=== PATIENT | male | born 1970 | race Caucasian/White ===

== ENCOUNTER → 2017-04-14 | Outpatient (CLI) | payer OTHER ==
[~2017-04-14] MED LIST: HYDR-5688 PO; MELO7.5T5 PO; MULT-506 PO
[2017-04-14 12:37] LABS: ALBUMIN 3.9 gm/dl (3.4-5.0); ALT/SGPT 26 U/L (12-78); BLOOD UREA NITROGEN 14 mg/dl (7-18); CARBON DIOXIDE 25 mmol/L (21-32); CHOLESTEROL 220 mg/dl (0-200); CREATININE 0.87 mg/dl (0.60-1.40); GLUCOSE 105 mg/dl (70-99); SODIUM 136 mmol/L (136-145)
[2017-04-14 12:42] LABS: ALKALINE PHOSPHATASE 53 U/L (45-117); AST/SGOT 25 U/L (15-37); LDL CHOLESTEROL CALCULATED 156 mg/dl; TOTAL PROTEIN 7.4 gm/dl (6.4-8.2)
== END | disposition home or self-care (01) ==
LOC: C.LABBFT 09:03
PROVIDERS: ATTEND Physician Assistant Medical
DX: Z12.5 Encounter for screening for malignant neoplasm of prostate (principal); E78.5 Hyperlipidemia, unspecified

== ENCOUNTER 2022-02-09 06:15 | Observation (INO) ==
--- NOTE | 2022-01-18 09:02 | PAT Medication Instructions ---
Medication Instructions Date of Service January 18, 2022 Home Medications Medication Instructions Recorded rosuvastatin 10 mg tablet 10 mg PO DAILY #90 tabs 01/21/21 meloxicam 15 mg tablet 15 mg PO DAILY PRN pain #30 tabs 10/06/21 albuterol sulfate 90 mcg/actuation 2 inh inhalation Q6H PRN shortness 12/14/21 aerosol inhaler (Ventolin HFA) of breath or wheezing #18 grams cetirizine 10 mg tablet (Zyrtec) 10 mg PO DAILY PRN allergies multivitamin 1 tab PO DAILY Carole Raulito 1 packet PO DAILY omega-3 fatty acids 1,000 mg PO DAILY rosuvastatin 10 mg tablet 10 mg PO DAILY meloxicam 15 mg tablet 15 mg PO DAILY PRN pain albuterol sulfate 90 mcg/actuation aerosol inhaler (Ventolin HFA) 2 inh inhalation Q6H PRN shortness of breath or wheezing ASK your surgeon for instructions meloxicam 15 mg tablet 15 mg PO DAILY PRN pain STOP taking 2 weeks before surgery (or as soon as possible if surgery is within 2 weeks) Carole Raulito 1 packet PO DAILY omega-3 fatty acids 1,000 mg PO DAILY DO NOT take the morning of surgery cetirizine 10 mg tablet (Zyrtec) 10 mg PO DAILY PRN allergies multivitamin 1 tab PO DAILY Take morning of surgery With a small sip of water, OTHERWISE NOTHING TO EAT OR DRINK AFTER MIDNIGHT: rosuvastatin 10 mg tablet 10 mg PO DAILY albuterol sulfate 90 mcg/actuation aerosol inhaler (Ventolin HFA) 2 inh inhalation Q6H PRN shortness of breath or wheezing (use if needed; please bring rescue inhaler with you to hospital day of surgery if possible) Take evening before surgery cetirizine 10 mg tablet (Zyrtec) 10 mg PO DAILY PRN allergies (if needed) albuterol sulfate 90 mcg/actuation aerosol inhaler (Ventolin HFA) 2 inh inhalation Q6H PRN shortness of breath or wheezing (if needed) Other Notes If you have any questions please call us at [phone] or [phone] or [phone] or [phone]
--- NOTE | 2022-01-19 09:12 | Anesthesiology Consultation ---
Date of Service January 19, 2022 Assessment & Plan (1) Encounter for pre-operative examination: - COVID screening: Per assessment on 01/19: No known COVID-19 positive contacts or current COVID-19 related symptoms. Travel screen- [place] 12/2021. Patient vaccinated. At surgeon discretion if preop Covid testing being done. - Outpatient joint assessment: Pt currently scheduled for inpatient pathway. If surgeon requests review for outpatient joint pathway, patient is an acceptable candidate for outpatient joint program from anesthesia standpoint pending surgeon's office assessment of pt motivation/strong home support/completion of same day joint program preop requirements. Chart Review Chart Review: Acceptable Risk for Surgery and Patient seen in Pre Admission Testing Teaching & Discussion Pre-Anesthesia Teaching/Discussion Notes: Instructed NPO after midnight before surgery,except medications with 15 cc of water. Medication instructions provided according to the PAT guidelines. History Surgery Operation Date: 02/09/22 08:50 Proposed Procedures p Left Total Knee Arthroplasty - Peter Meléndez MD Height/Weight Height: 6 ft Weight: 101.7 kg Allergies Allergy/AdvReac Type Severity Reaction Status Date / Time Penicillins Allergy Unknown hives Verified 01/15/22 08:47 Medications Home Medications Medication Instructions Recorded Confirmed Last Taken cetirizine 10 mg tablet (Zyrtec) 10 mg PO DAILY PRN allergies 04/17/19 01/15/22 Unknown multivitamin 1 tab PO DAILY 04/17/19 01/15/22 Unknown Carole Raulito 1 packet PO DAILY 12/28/19 01/15/22 Unknown omega-3 fatty acids 1,000 mg PO DAILY 12/28/19 01/15/22 Unknown rosuvastatin 10 mg tablet 10 mg PO DAILY #90 tabs 01/21/21 01/15/22 Unknown meloxicam 15 mg tablet 15 mg PO DAILY PRN pain #30 tabs 10/06/21 01/15/22 Unknown albuterol sulfate 90 mcg/actuation 2 inh inhalation Q6H PRN shortness 12/14/21 01/15/22 Unknown aerosol inhaler (Ventolin HFA) of breath or wheezing #18 grams Past Medical History Medical History Asthma due to seasonal allergies Degenerative arthritis of knee, bilateral Environmental allergies mold, dust Hypercholesteremia Hypertension no meds Exercise / Class Metabolic Activity II 4-5 Yardwork/Stairs/Walk up hill (one FS (no CP, no SOB)) Past Family History Family History Brother Myocardial infarction Mother Myocardial infarction Other No family history of adverse response to anesthesia Past Surgical History Surgical History History of carpal tunnel release Hx of arthroscopic knee surgery x2 Hx of inguinal hernia repair Past Anesthesia History No Hx of Anesthesia Complications and No Family Hx of Anesthesia Complications History of PONV No Hx of PONV and Hx of Motion Sickness (Boat) Social History Smoking Status: Never smoker tobacco type: smokeless tobacco Do You Dip or Chew Tobacco: Yes (Advised none DOS) Hx Alcohol Use: Yes alcohol intake frequency: a few times a week Hx Substance Use: No substance use type: does not use Review of Systems Patient denies chest pain, shortness of breath, dyspnea on exertion, fever, chills, cough, wheezing, palpitations. Physical Exam Vital Signs VITALS BP 121/77 P 74 TEMP 98.4 SP02 97%RA RESP 16 PHYSICAL Full cervical extension range of motion. Full TMJ range of motion. TMD 3 finger breaths Mallampati Score 3 Dentition: + chipped tooth (left upper side tooth) Lungs: clear throughout to auscultation Cardiac: regular rate and rhythm, no murmurs noted Spine: normal Carotid arteries: negative bruit Extremities: no edema Lab Results Anesthesia Preop Results Results Anesthesia Widget: WBC 4.67 K/ul (4.8-10.8) L 01/19/22 Hgb 14.9 g/dl (14.0-18.0) 01/19/22 Hct 43.5 % (40.1-51.0) 01/19/22 Plt 170 K/uL (130-400) 01/19/22 Na 139 mmol/L (136-145) 01/19/22 K 3.8 mmol/L (3.5-5.1) 01/19/22 Cl 106 mmol/L (98-107) 01/19/22 CO2 26 mmol/L (21-32) 01/19/22 BUN 14 mg/dl (6-23) 01/19/22 Creat 0.76 mg/dl (0.6-1.4) 01/19/22 Glucose Level 99 mg/dl (70-99(Fasting)) 01/19/22 PT 10.9 Seconds (9.0-12.0) 01/19/22 PTT 27.9 Seconds (21.0-31.0) 01/19/22 INR 1.0 (0.9-1.1) 01/19/22 Blood Type A Positive 01/19/22 Antibody Screen NEGATIVE 01/19/22 Testing Electrocardiogram Date: 01/19/22 NSR at 62bpm. unconfirmed report. Chest X-Ray Date: 01/19/22 FINDINGS: PA and lateral chest radiographs are compared to study dated 12/28/2019 and correlated with chest CT dated 02/09/2010. The cardiomediastinal silhouette is unremarkable. A large calcified granuloma is again seen in the right middle lobe. The lungs and pleural spaces are otherwise clear. There is no pneumothorax. The bony thorax appears intact. IMPRESSION: No active disease in the chest. COVID-19 Risk Screen Screening Information COVID-19 Screen Date: 01/19/22 Exposure 21 Days Family/Household +COVID Last 21 Days: No Exposure 10 Days Any COVID Exposure Last 10 Days: No Symptoms Last 10 Days Experienced COVID Sx Last 10 Days: No + COVID 0-90 Days COVID + in Last 0-90 Days: No
--- NOTE | 2022-02-05 13:56 | History and Physical Report ---
DATE OF ADMISSION: 02/09/2022. CHIEF COMPLAINT: Bilateral knee pain and discomfort, left side greater than right. HISTORY OF PRESENT ILLNESS: The patient is a 51-year-old very active gentleman who presents for mathew tment of his knees. We have been following for several years for advanced knee arthritis, which has gradually gotten worse over time. He has been through extensive conservative treatment including inj ections. He even went outside and had some stem cell injections. The first one helped quite a bit, the last one did not help much at all. Both knees hurt. He is having difficulty doing his job. He has had chiropractic treatments. He has been through therapy. [facility] The left knee is worse than the right. PAST MEDICAL HISTORY: 1. Asthma. 2. Elevated cholesterol. PAST SURGICAL HISTORY: Includes: 1. Bilateral knee scopes. 2. Carpal tunnel release. ALLERGIES: Hayfever. CURRENT MEDICATIONS: Include: 1. Meloxicam. 2. Zyrtec. 3. Crestor. SOCIAL HISTORY: A 51-year-old male. He is active. Six to 10 drinks per week. Does not smoke. FAMILY HISTORY: Noncontributory. REVIEW OF SYSTEMS: Negative for diabetes, neurologic problem, vascular problem, or bleeding disorder s. No chest pain or shortness of breath. No history of DVT or PE. No known bleeding problems. PHYSICAL EXAMINATION: GENERAL: Shows a pleasant middle-aged male. Looks to be in good health. HEENT: Benign. NECK: Supple. No lymphadenopathy. LUNGS: Clear to auscultation. HEART: Has a regular rate and rhythm. ABDOMEN: Soft, nontender, nondistended. EXTREMITIES: Grossly neurovascularly intact except as follows. Examination of both knees revealed patient walks with a bit of waddling gait. Examination of the lef t knee reveals a varus deformity. He has got a small to moderate-sized knee effusion. Range of nara on about 5-95 degrees. Knee is pretty stiff. No pain with hip motion. Examination of the right knee reveals similar varus deformity. Small knee effusion. Tender over the medial joint line. Range of motion 5-95. No instability. X-RAYS: X-rays of both knees were reviewed. It shows advanced bilateral medial compartment DJD. He has got complete loss of medial joint space on both sides. Osteophytes medially. Pretty equally sym metric. ASSESSMENT: A 51-year-old male with advanced bilateral knee degenerative joint disease with a histor y of bilateral knee scopes done in the past. He has failed conservative treatment. He would now lik e to proceed with a left knee replacement. PLAN: We will proceed with left knee replacement. The risks and benefits of this procedure were exp lained to the patient and include but not limited to DVT, PE, , infection, neurological injury, vascular injury, bleeding problem, pain, limited range of motion, stiffness, failure to relieve sympt oms, incomplete relief of symptoms, need for further surgery in the future, etc. The patient underst ands and desires to proceed. Informed consent was obtained. He is planning to stay in the hospital overnight. Hope will be to discharge on postoperative day 1 w [facility] [place]. Job ID: [id number]
[~2022-02-09 06:15] MED LIST changes: +ALLERGY Noted to ORDERED Medication SCH; +BUPIVACAINE LIPOSOME/PF 266 MG, BUPIVACAINE/EPINEPHRINE 50 ML, SODIUM CHLORIDE 0.9% 30 ... INFIL SCH; +CeleBREX 200 MG CAP PO SCH; +FAMOTIDINE 20 MG TAB PO SCH; -HYDR-5688 PO; +LR 500ML BOLUS, THEN 15ML/HR IV SCH; +LR 60ML/HR IV SCH; -MELO7.5T5 PO; +METOCLOPRAMIDE HCL 10 MG TABLET PO SCH; -MULT-506 PO; +Scopolamine 1 MG TDSY TD SCH; +TRANEXAMIC ACID 1,000 MG **IV Intra-op IV SCH
[2022-02-09] MEDS ORDERED: BUPIVACAINE 0.5 % 5 MG/1 ML PF 10ML VIAL ONE (06:32)
[2022-02-09] MEDS ORDERED: ROPIVACAINE 0.5% 5 MG/ML 30 ML VIAL ONE (06:33)
--- NOTE | 2022-02-09 06:53 | History & Physical Bridge Note ---
Date of Service February 09, 2022 History & Physical Bridge Note I have examined the patient, reviewed the History & Physical and in the interval since the performance of the History & Physical I have noted the following changes of clinical significance: no changes noted
[2022-02-09] MEDS: ACETAMINOPHEN 500 MG TAB PO SCH ×4 (07:04→21:51)
[2022-02-09] MEDS ORDERED: ceFAZolin 2000MG 2,000 MG/15 ML SYR IV SCH (07:15)
[2022-02-09] MEDS ORDERED: Nursing to Pharmacy Communication SCH (07:15)
[2022-02-09] MEDS ORDERED: PROPOFOL IV EMULSION 10 MG/ML 20 ML VIAL IV ONE (07:53)
[2022-02-09] MEDS ORDERED: MIDAZOLAM HCL 1 MG/ML 2ML VIAL ONE ×2 (07:59→09:03)
[2022-02-09] MEDS ORDERED: HYDROmorphone INJ 1 MG/ML SYRINGE IV PRN (08:48)
[2022-02-09] MEDS ORDERED: ePHEDrine sulfate 50 MG/ML AMP IV PRN (08:48)
[2022-02-09] MEDS ORDERED: ONDANSETRON INJ 2 MG/ML 2 ML VIAL IV PRN ×2 (08:48→15:11)
[2022-02-09] MEDS ORDERED: ATROPINE SULFATE 0.1 MG/ML 10ML SYR IV PRN (08:48)
[2022-02-09] MEDS ORDERED: KETOROLAC 30 MG/ML VIAL IV PRN (08:48)
[2022-02-09] MEDS ORDERED: EPINEPHrine INJ 1 MG/ML AMP ONE (09:42)
[2022-02-09] MEDS ORDERED: BUPIVACAINE/EPINEPHRINE 0.25% 1:200,000 30 ML VIAL ONE (09:43)
[2022-02-09] MEDS ORDERED: fentaNYL citrate 100 MCG/2 ML VIAL ONE (09:56)
[2022-02-09] MEDS ORDERED: SODIUM CHLORIDE 0.9% INJ 10 ML VIAL ONE (10:06)
[2022-02-09] MEDS ORDERED: BUPIVACAINE LIPOSOME 1.3% 266 MG/20 ML VIAL ONE (10:07)
[2022-02-09] MEDS ORDERED: ONDANSETRON INJ 2 MG/ML 2 ML VIAL ONE (10:09)
--- NOTE | 2022-02-09 12:07 | Operative Report ---
PG Post Operative Report Pre & Post Diagnosis Operation Date: 02/09/22 08:50 Pre-Op Diagnosis: Left knee degenerative joint disease. Post-Op Diagnosis: Left knee degenerative joint disease. I identified the patient and participated in the time-out.: Yes Procedure Operation Date: 02/09/22 08:50 Actual Procedures p Left Total Knee Arthroplasty(Left) - Peter Meléndez MD Surgeon Peter Meléndez MD Tissue Technician Kee Huntley PA-C Estimated Blood Loss 50 Findings Consistent with Post-Op Diagnosis Operative findings were advanced left knee DJD. He had a very stiff knee with about a 10 to 15 degree flexion contracture and only about 90 to 95 degrees knee flexion. He had extensive grade 4 [id number] disease of the medial and patellofemoral compartments. Osteophytes primarily medially and posteriorly. Moderate-sized joint effusion. Fluids 1200 cc Specimens left knee sent for pathology Drains None Anesthesia Type Spinal MAC Complications none Disposition Accompanied Patient To Recovery: No Indications Patient 51-year-old very active gentleman has a long history of bilateral knee pain discomfort has progressed over the years. He did have his left knee scoped about 10 years ago which gave him some temporary relief. Over the past 5 years he developed progressively increasing pain discomfort stiffness. He failed all conservative measures. X-rays show advanced left knee arthritis. He elected proceed with surgical treatment. Description of Procedure Operative implants consist of: 1 Biomet Vanguard size 70 left posterior stabilized femoral component. 2. Biomet size 79 tibial tray. 3. 10 mm posterior stabilized polyethylene insert. 4. 34 x 8 and half all Paller patella. The patient was taken the operating, identified, placed on the operating table supine position protectors were properly padded. IV antibiotics tried by anesthesia team. A spinal anesthetic and abductor canal block had provided holding area. Green catheter was placed in sterile fashion. A left thigh turn was then placed in left lower extremity then prepped and draped in usual sterile fashion. Left leg was elevated exsanguinated with use of an Esmarch in terms playset 3 mmHg. An anterior approach to the left knee was then performed to longitudinal incision centered over the patella. Sharp dissection was carried through subcutaneous tissue down the extensor mechanism. A medial parapatellar arthrotomy incision was made. Some subperiosteal dissection was carried out medially. The fat pad was resected from Neath patella tendon. Lateral patellofemoral ligament was released. Patella was subluxated laterally knee was flexed. The osteophyte taken off distal femur. The ACL and PCL were then released from distal femur the tibia subluxated anteriorly. External tibial alignment jig was then placed in the interface the tibia and adjusted 14 mm medially. Proximal tibial cut was made to remove most millimeter bone from the most deficient aspect medial tibial plateau. Some osteophytes were taken off medial and posterior medially. Tibia sized to a size 79. Attention drawn to the femur. The distal femur was entered with a sharp drill. Intramedullary canal was suction. A left 6 degree valgus cutting guide was placed. This femoral cutting block was pinned in place. This femoral cut was made to take an additional 3 mm of bone off distal femur. The femur was then sized to a size 70. Was downsized slightly. The AP cutting block was pinned parallel to the epicondylar axis which was 5 degrees of external rotation. Anterior cut, anterior chamfer, posterior cut, posterior chamfer cuts were made. Box cutting guide was placed in just slight lateral box cut was made. The knee was flexed. The remnants of the medial and lateral menisci were excised. The osteophyte taken off the posterior aspect of femur. A trial femoral component was placed. The tibial tray was pinned in maximum external rotation and the drill and stem punch were used to create defect in proximal tibia for the tibial tray. The knee was then trialed and the 10 mm insert fit most appropriately. Attention drawn the patella. The patella was cleaned of all soft tissue. Patella thickness measured 23 mm in thickness and it was cut down to a 14. It was sized to a size 34 patella. The lug holes were drilled for the 34 patella. The lateral osteophytes removed. Patella button was placed. Knee was taken through range of motion patella tracked nicely with no thumbs test. Attention drawn to placing the permanent components. All trial components were removed. Bone plug was placed in the distal femur limit blood loss. Double batch Palacos G cement was mixed. Biomet emotion.meguard size 70 left posterior stabilized femoral component, size 79 tibial tray, a 10 mm posterior stabilized polyethylene insert, and a 34 x 8 and half all Paller patella then cemented in place. Knee was brought out in full extension until cement hardened. Final cement check was then performed. Pericapsular tissues were injected with total 100 cc of combination of 20 cc of Exparel, 30 cc normal saline, 50 cc of quarter percent Marcaine with epinephrine. Patient did receive 1 g tranexamic acid. The tourniquet was then let down for total tourniquet time 70 minutes. Hemostasis assured use electrocautery. Extensor mechanism closed with combination 1 PDS suture #1 Vicryl suture in [id number] fashion. Extensor mechanism checked found to be intact the subcutaneous tissue then closed with 2 Dexon suture in a buried interrupted fashion skin was closed skin flower. Leg was then cleaned and dried a sterile dressing pro Xeroform, 4 x 4's, sterile cast padding, Prudencio bandage were applied. Patient then transferred to the recovery room in stable condition. Patient tolerated procedure well and there were no complications. Kee Huntley, my physician email marketing assistant, was present for the entire procedure. His assistance was required for proper patient positioning, prepping and draping, surgical exposure, retraction, perform the technical details of the operation, placement of the implants, closure of the wound and placement of the sterile bandage. I attest to the content of the Intraoperative Record and any orders documented therein. Any exceptions are noted below.
--- NOTE | 2022-02-09 13:13 | Anesthesiology Progress Note ---
Date of Service February 09, 2022 Anesthesia Post Procedure Vital Signs Vital Signs: Temp Pulse Resp BP Pulse Ox O2 Del Method 02/09/22 13:05 36.7 C 66 16 99/65 L 98 Room Air 02/09/22 12:55 56 L 16 99/61 L 96 Room Air 02/09/22 12:45 60 16 104/67 96 Room Air 02/09/22 12:35 36.7 C 55 L 14 103/65 96 Room Air 02/09/22 12:25 54 L 16 105/65 96 Room Air 02/09/22 12:15 60 16 110/70 97 Room Air 02/09/22 12:05 56 L 16 101/65 97 Room Air 02/09/22 11:59 36.3 C L 64 18 107/64 96 Room Air 02/09/22 06:49 36.8 C 78 20 164/106 H 99 Room Air Transfer of Care Handoff Completed per policy Notes Mental Status: alert / awake / arousable Patient Amnestic to Procedure: Yes Nausea / Vomiting: adequately controlled Pain: adequately controlled Airway Patency, RR, SpO2: stable & adequate BP & HR: stable & adequate Hydration State: stable & adequate Neuraxial Anesthesia: was administered and sensory block is resolving Anesthetic Complications: no major complications apparent
[2022-02-09] MEDS ORDERED: diphenhydrAMINE Capsule 25 MG CAP PO PRN (15:11)
[2022-02-09] MEDS ORDERED: NALOXONE HCL 0.4 MG/1 ML VIAL/CARP IV PRN (15:11)
[2022-02-09] MEDS ORDERED: CETIRIZINE HCL 10 MG TABLET PO PRN (15:11)
[2022-02-09] MEDS ORDERED: SODIUM CHLORIDE 0.9% 1000ML 1,000 ML IV SCH (15:11)
[2022-02-09] MEDS ORDERED: ALBUTEROL HFA 8 GM INHALER INH PRN (15:11)
[2022-02-09] MEDS ORDERED: TAMSULOSIN HCL 0.4 MG CAP PO PRN (15:11)
[2022-02-09] MEDS ORDERED: METOCLOPRAMIDE HCL INJ 5 MG/ML 2 ML VIAL IV PRN (15:11)
[2022-02-09] MEDS ORDERED: bisacodyL 10 MG SUPP PR PRN (15:11)
[2022-02-09] MEDS ORDERED: ALUMINUM/MAGNESIUM SUSP 30 ML UDC PO PRN (15:11)
[2022-02-09] MEDS ORDERED: MAGNESIUM HYDROXIDE SUSP 30 ML UDC PO PRN (15:11)
[2022-02-09] MEDS ORDERED: HYDROmorphone INJ 0.5 MG/0.5 ML SYR IV PRN (15:11)
[2022-02-09] MEDS: Scopolamine CHECK PATCH PLACEMENT SCH ×2 (15:38→23:29)
[2022-02-09] MEDS: oxyCODONE HCL IR 5 MG TAB (IMMEDIATE RELEASE) PO PRN ×3 (16:38→21:51)
[2022-02-09] MEDS: ceFAZolin 2000MG 2,000 MG/15 ML SYR IV SCH (17:51)
[2022-02-09] MEDS: ASCORBIC ACID 500 MG TAB PO SCH (17:52)
[2022-02-09] MEDS: KETOROLAC 30 MG/ML VIAL IV SCH ×2 (17:53→23:29)
[2022-02-09] MEDS ORDERED: TRANEXAMIC ACID / 0.7% NACL 1,000 MG/100 ML BAG IV SCH (18:00)
--- NOTE | 2022-02-09 18:21 | XRay Report ---
XR knee LT 1 or 2V routine HISTORY: 51 years-old Male Surgical Post Op left knee total joint arthroplasty COMPARISON: Knee radiographs 12/31/2021 TECHNIQUE: 2 views of the left knee FINDINGS: Total joint arthroplasty with patellar resurfacing. Anterior midline skin flower are noted along wit h expected postoperative soft tissue swelling with deep tissue air. No acute fracture or unexpected o paque foreign body identified. IMPRESSION: Total joint arthroplasty with expected postoperative changes. ACT 112: Negative or not required by law. The above report was generated using voice recognition software. It may contain grammatical, syntax o r spelling errors. Electronically signed by: Rene Cruz M.D. 02/09/2022 6:20 PM
[2022-02-09] MEDS: DOCUSATE SODIUM 100 MG CAP PO SCH (20:29)
[2022-02-09] MEDS: ASPIRIN 81 MG ECTAB PO SCH (20:29)
[2022-02-09] MEDS: TAPENTADOL HCL ER 50 MG TABCR PO SCH (20:29)
[2022-02-09] MEDS ORDERED: SENNA 8.6 MG TAB PO SCH (21:00)
[2022-02-10] MEDS: ceFAZolin 2000MG 2,000 MG/15 ML SYR IV SCH (01:48)
[2022-02-10] MEDS: oxyCODONE HCL IR 5 MG TAB (IMMEDIATE RELEASE) PO PRN ×2 (02:52→09:52)
[2022-02-10] MEDS: ACETAMINOPHEN 500 MG TAB PO SCH (06:00)
[2022-02-10] MEDS: KETOROLAC 30 MG/ML VIAL IV SCH ×2 (06:00→11:27)
[2022-02-10 07:29] LABS: BUN Creatinine Ratio 17.2 (10-20); Calcium 7.8 mg/dl (8.5-10.1); Creatinine Clr Calc Pharmacy 116.3 ml/min; Est GFR (African American) 109.8 ml/min; Est GFR (Non-African American) 94.7 ml/min; Potassium 3.9 mmol/L (3.5-5.1)
[2022-02-10 07:40] LABS: Hematocrit (blood only) 33.2 % (40.1-51.0); Hemoglobin 11.5 g/dl (14.0-18.0); Mean Corpuscular Hemoglobin 31.6 pg (25.0-34.0); Mean Corpuscular Hgb Conc 34.6 g/dL (32.0-36.0); Mean Corpuscular Volume 91.2 fL (80.0-100.0); Mean Platelet Volume 9.9 fL (9.4-12.4); Platelet Count 152 K/uL (130-400); RDW Coefficient of Variation 12.2 % (11.5-14.5); RDW Standard Deviation 41.1 fL (36.4-46.3); Red Blood Count 3.64 M/uL (4.63-6.08); White Blood Count 8.06 K/ul (4.8-10.8)
[2022-02-10] MEDS ORDERED: dexAMETHasone 10 MG in SYRINGE 0 ML IV SCH (08:00)
[2022-02-10] MEDS: TAPENTADOL HCL ER 50 MG TABCR PO SCH (08:36)
[2022-02-10] MEDS: ASCORBIC ACID 500 MG TAB PO SCH (08:37)
[2022-02-10] MEDS: ASPIRIN 81 MG ECTAB PO SCH (08:39)
[2022-02-10] MEDS: DOCUSATE SODIUM 100 MG CAP PO SCH (08:40)
[2022-02-10] MEDS: Scopolamine CHECK PATCH PLACEMENT SCH (08:41)
[2022-02-10] MEDS ORDERED: NON-FORMULARY MEDICATION (Multivitamin tablet) PO SCH (09:00)
[2022-02-10] MEDS ORDERED: OMEGA-3 (PURIFIED FISH OIL) 1 GM CAP PO SCH (09:00)
[2022-02-10] MEDS ORDERED: MULTIVITAMIN TAB PO SCH (09:00)
[2022-02-10] MEDS ORDERED: [UNRECOGNIZED DRUG - OTHER] PO SCH (09:00)
[2022-02-10] MEDS ORDERED: ROSUVASTATIN CALCIUM 10 MG TAB PO SCH (09:00)
--- NOTE | 2022-02-10 11:07 | Orthopedic Progress Note ---
Date of Service February 10, 2022 Assessment & Plan (1) Status post total left knee replacement: -Doing well on POD 1 -WBAT LLE: PT/OT evaluation today -Pain controlled with current regimen -Aspirin 81 mg BID for DVT ppx -Post op antibiotics ordered Dispo: Likely discharge home with home health later today pending PT/OT evaluation. Subjective Feels fine today. Having expected amount of pain, controlled with current pain meds. OOB without issue . Review of Systems All systems reviewed & are unremarkable except as noted in HPI & below. Physical Exam General: Pleasant 51 y/o/m resting comfortably in bed in NAD. AAO x 4 LLE: Dressing is C/D/I. Expected amount of incisional tenderness. Distally N/V/I . Results & Data Results & Data Laboratory Results Reviewed- Stable. Diagnostic Findings Reviewed - Expected post operative findings . PG Care Time/CCT Total # of Minutes Spent Total Time Spent with Patient: Total time spent is greater than 50% in coordination of care (as documented) at patient's floor/unit and/or counseling patient: Coding Level of Care Code 61643 Post Operative Follow-Up Diagnoses Status post total left knee replacement Z96.652
--- NOTE | 2022-02-13 07:32 | Discharge Summary ---
Date of Service February 13, 2022 Discharge Data Procedures Performed Operation Date: 02/09/22 08:50 Actual Procedures p Left Total Knee Arthroplasty(Left) - Peter Meléndez MD Hospital Course (1) Status post total left knee replacement: This is a 51 year old patient admitted on 02/09/22 and underwent total knee arthroplasty. He tolerated the procedure well and there were no complications. T ransferred to the PACU post op and later to the orthopedic floor for further care. He was given ancef for antibiotic prophylaxis. He was also given SAI stockings, SCDs, and aspirin for DVT prophylaxis. Hemoglobin, hematocrit, and vital signs were monitored during his hospital stay and remained stable. Did not require any blood transfusions. There were no complications during his hospital stay. By post op day #1 the patient was tolerating a regular diet, pain was reasonably controlled with oral pain medicine, and he was participating in physical therapy. On post op day #1 the patient was discharged home and set up with home health care. He was given printed discharge instructions including prescriptions for extra strength tylenol, aspirin, cefadroxil, zofran, ketorolac, senokot, and oxycodone. Continue physical therapy, weight bearing as tolerated. Continue SAI stockings. Follow up approximately 2 weeks post op or sooner if there are problems or concerns. Coding Level of Care Code None Diagnoses Status post total left knee replacement Z96.652
== END 2022-02-10 13:12 | disposition home health service (06) ==
LOC: 3W 06:15 → ASU 06:15
DX: M65.9 Synovitis and tenosynovitis, unspecified; M25.762 Osteophyte, left knee; Z79.1 Long term (current) use of non-steroidal anti-inflammatories (NSAID); M25.462 Effusion, left knee; F17.220 Nicotine dependence, chewing tobacco, uncomplicated; M17.12 Unilateral primary osteoarthritis, left knee; Z79.899 Other long term (current) drug therapy; M24.562 Contracture, left knee; Z88.0 Allergy status to penicillin; Z20.822 Contact with and (suspected) exposure to COVID-19; Z79.82 Long term (current) use of aspirin